=== PATIENT | male | born 1945 | race Caucasian/White ===

== ENCOUNTER 2024-05-20 12:56 | Outpatient (REF) | payer MEDICARE, SELFPAY ==
--- NOTE | ~2024-05-20 | XR_ITS ---
EXAMINATION: X-ray lumbar spine 4 views. CLINICAL INFORMATION: Radiculopathy, lumbar region. TECHNIQUE: 4 views of the lumbar spine including flexion and extension. COMPARISON: None FINDINGS: Transverse pedicle screw L4, L5 and S1 bilaterally. Status post intervertebral disc spacer L4-5 and L5-S1. Marginal osteophyte formation, syndesmophyte formation and endplate sclerosis and decreased intervertebral disc height L2-3 and to a lesser extent L3-4. No gross malalignment in the neutral or flexion and extension positioning. Vascular calcifications. XR/XR lumbar spine 4V min IMPRESSION: Moderate to severe spondylosis L2-3 and to a lesser extent L3-4 without acute fracture or listhesis or gross instability. Status post posterior fusion L4 S1 and intervertebral disc spacer placement L4-5 and L5-S1. Electronically signed by: Nathan Valadez MD 05/21/2024 03:50 PM EDT
== END 2024-05-20 12:57 | disposition home or self-care (01) ==
LOC: HO.HOSX 12:56
PROVIDERS: PCP Physician Assistant; Visit Provider Physician Assistant
DX: M54.16 Radiculopathy, lumbar region (principal)
CPT/HCPCS: 72110; 99202

== ENCOUNTER 2024-05-20 12:56 | Outpatient (AMB) | payer MEDICARE, SELFPAY ==
--- NOTE | 2024-05-20 12:59 | HO.SPINEOV ---
Vital Signs 05/20/24 13:03 Height 5 ft 8 in Weight 188 lb BMI 28.6 Intake Visit Reasons: left buttock pain down foot Intake Note: Mr. Quinones is here today c/o Left sided buttock pain that radiates down the leg to the foot. Radiology Clerk Required: No Allergies amoxicillin Allergy (Severe, Verified 05/20/24 13:04) Stomach Upset Physical Exam Vital Signs: BMI result Body Mass Index 28.6 Assessment & Plan Assessment & Plan (1) Lumbar radiculopathy: Code(s): M54.16 - Radiculopathy, lumbar region Category: Medical Plan This is a very nice 79-year-old gentleman who underwent anterior lumbar interbody fusion L4-5, L5-S1 with posterior instrumentation with Dr. Schreiber at [facility] in February of 2023. His initial preoperative symptom was back pain. He had gone through extensive preoperative conservative management and it was decided based on his MRI that he had degenerative disc disease at L4-5 and L5-S1, and would be a good candidate for surgery. The patient reports that he underwent the procedure. For whatever reason, the was told after surgery that the operation went well but that it did take longer than they thought. Right after the surgery the patient had delirium and an ileus and had an extended stay in the hospital. Once he was able to get up and start walking around maybe a week later or so, he noticed that he had severe left leg pain shooting from his low back down into his buttock, posterolateral thigh, anterior tibial region that top of his foot. He also developed a footdrop at that time. Patient saw Dr. Schreiber in follow-up, felt that it might be some kind of perioperative related nerve irritation and that it should get better over time. He underwent extensive physical therapy. There was some improvement in the weakness of the foot but no improvement in the leg pain. In fact over the following months the pain escalated and continued to get worse. Any standing walking or prolonged activity the patient requires a walker or a cane. He has been doing injections at [facility] and [facility]. He underwent the 1st 2 injections and he had no relief. He did undergo an injection this morning just before our office visit and noticed that there was some relief of the pain. Exactly what that injection was the patient's believes it may have been an epidural. The patient saw Dr. Schreiber recently, and has been offered the possibility of what sounds like a lumbar laminectomy and foraminotomy. The patient currently is taking oxycodone 1 to 2 times a day, Tylenol without any major improvements. He had an MRI done at [place] showing postsurgical changes, stenosis at L3-4. PMH: He is reasonably healthy for his age, history of prostate cancer, status post open prostate resection, hypertension, prediabetes with an A1c of 6.1, high cholesterol, NAFLD but no liver function abnormalities, 2 rotator cuff repairs, 2 knee surgeries. Denies any history of heart attack, stroke, kidney disease, coagulopathies or blood clots Social hx: He does not smoke, does drink a fusion and tonics at night and occasionally smokes marijuana Medications: Amlodipine, losartan, rosuvastatin, escitalopram, oxycodone and Tylenol Allergies: Amoxicillin Physical exam: Awake alert oriented no acute distress, patient he would get up out of a chair on his own independently stand walk down the hallway with a slightly antalgic gait. Motor examination reveals a 4-5 weakness of the left tibialis anterior and left extensor hallucis longus. Foot eversion, plantar flexion, quadriceps and hip flexion are all normal. He has some loss of sensation along the L5 dermatome to light touch. Absent Achilles reflexes bilaterally. Imaging review: Lumbar MRI done at [place] in 2024, compared to previous imaging done preoperatively shows postsurgical changes from L4-S1 with anterior instrumentation and interbody cages, posterior pedicle screws. There is moderate to severe stenosis at L3-4 slightly worse than compared to imaging done preoperatively. There is obstruction due to metallic artifact of the left L5 foramen I can not distinguish if it is patent or not. Impression: 79-year-old male underwent lumbar anterior interbody fusion L4-5, L5-S1 with posterior instrumentation at [facility] with Dr. Schreiber about a year or more ago for surgical indication of back pain, who awoke with a new severe left leg pain and foot weakness that he did not have before surgery. The pain has only escalated over time despite conservative management and injections. The foot weakness has gotten slightly better but he is still dealing with the footdrop. I reviewed his imaging, the MRI is limited somewhat in that it is showing me details of the interbody cages and the screws but exact placement and position is unable to be determined due to the limitations with the MRI. I do not have a plain film more CT scan to look at but it appears as though these were done postoperatively. The 1st differential here would be that there was some kind of nerve injury at the time of surgery and that is why the patient awoke with the new pain in the weakness. This can be for many reasons, but we would need to review the CT scan with Dr. Harkins to see if there is any signs of misplacement of the screws. The will obtain those images for us and I will get new standing flexion-extension x-rays today just to get a better look at the hardware. A 2nd possibility is that during the placement of the cages a piece of the disc came out and has lodged itself up against the nerve. This would present like an acute disc herniation. Which is somewhat similar to what he has. Less likely is that it is the stenosis at L3-4 because all of this occurred immediately at the time of surgery in the stenosis does not look significantly different preoperative to postoperative. Once I have a copy of the CT scans in the x-rays I will call the patient back, and I would like them to return for a visit to meet Dr. Harkins into go over if there any options to help him with the leg pain. I did admonished the patient and his that the weakness of the foot is likely permanent. Thank you for allowing us to care for your patient. The total time spent with this visit with this patient was 65 minutes reviewing history, physical exam, lumbar imaging review, and implementation of treatment plan or further diagnostic testing Milton Harkins MD,PhD [facility] Orders: Orders XR lumbar spine 4V min Today M54.16 - Radiculopathy, lumbar region Coding Level of Care Code New Pt Level 5 (49396) Diagnoses Lumbar radiculopathy M54.16
[2024-05-20 13:03] VITALS: BMI 28.6
== END 2024-05-20 14:34 | disposition home or self-care (01) ==
LOC: HO.HNS 12:57
PROVIDERS: PCP Physician Assistant; Visit Provider Physician Assistant
DX: M54.16 Radiculopathy, lumbar region (principal)
CPT/HCPCS: 99205

== ENCOUNTER → 2024-05-20 14:05 | Outpatient (BNV) | payer MEDICARE, SELFPAY | PROVIDERS: PCP Physician Assistant; Visit Provider Radiology Diagnostic Radiology | DX: M54.16 Radiculopathy, lumbar region (principal) | CPT/HCPCS: 72110 ==

== ENCOUNTER 2024-05-30 16:40 | Outpatient (REF) | payer MEDICARE, SELFPAY ==
--- NOTE | ~2024-05-30 | CT_ITS ---
CLINICAL HISTORY: M54.16 - Radiculopathy, lumbar region CT lumbar spine without contrast Comparison: DX/SR - XR LUMBAR SPINE 4V MIN - 05/20/24 14:05 EDT Findings: Trace retrolisthesis of L3 on L4. Prior posterior metallic fusion extending from L4 through S1 and interbody fusion at L4-L5 and L5-S1. No evidence of hardware failure. No acute fractures or dislocations. L1-L2: Normal L2-L3: Small disc osteophyte complex. Endplate irregularity. No significant central canal or neural foraminal narrowing. L3-L4: Small disc osteophyte complex. Mild thecal sac effacement. Mild bilateral neural foraminal narrowing. L4-L5: Postsurgical change. Widely patent central canal and neural foramina. L5-S1: Postsurgical change. Endplate proliferation. Facet osteoarthritis. Mild narrowing of the left lateral recess. Moderate stenosis of the right neural foramen. Mild stenosis of the left neural foramen. There are retroperitoneal surgical clips. There are gallstones within the gallbladder. IMPRESSION: 1. Status post surgical fusion extending from L4 through S1. Appropriate alignment. No evidence of hardware failure. 2. Endplate irregularity at L2-L3. This is most likely degenerative but discitis osteomyelitis is not excluded. 3. Degenerative changes with associated central canal and neural foraminal narrowing as described. 4. Cholelithiasis. This document has been electronically signed by: Helen Mckinney MD on 05/31/2024 15:01:11
--- OUTSIDE RECORDS SUMMARY | 2024-05-30 17:13 | XMS_ITS | Clinical Summary ---
Author Organization [facility], Address [address] [place] [address] Phone Care Team Providers Care Injection Molding Process Technician Name Role Phone Patel Madrigal Primary Care Provider [phone] Allergies Active Allergy Reactions Criticality Noted Date Comments Amoxicillin Vomiting 03/08/2023 NAUSEA Medications rosuvastatin (CRESTOR) 40 MG tablet Take 40 mg by mouth 1 (one) time each day Active escitalopram (LEXAPRO) 10 MG tablet Take 10 mg by mouth 1 (one) time each day Active amLODIPine (NORVASC) 10 MG tablet Take 10 mg by mouth 1 (one) time each day Active losartan (COZAAR) 50 MG tablet Take 100 mg by mouth 1 (one) time each day Active acetaminophen (TYLENOL) 500 MG tablet Take 1,000 mg by mouth every 4 (four) hours if needed for mild pain Active gabapentin (NEURONTIN) 100 MG capsule Take 100 mg by mouth in the morning and 100 mg in the evening and 100 mg before bedtime. As needed. Active furosemide (Lasix) 40 MG tablet Take 1 tablet (40 mg total) by mouth 1 (one) time each day 7 tablet 04/19/2023 Active Active Problems Problem Noted Date Diagnosed Date Depressive disorder 03/09/2023 Hyperlipidemia 03/09/2023 Hypertension 03/09/2023 Gastrointestinal hemorrhage 03/09/2023 Overview (03/09/2023): History of Lumbar radiculitis 03/08/2023 Facet joint pain 03/08/2023 Social History Tobacco Use Types Packs/Day Years Used Date Smoking Tobacco: Former Cigarettes Tobacco Cessation:Counseling Given: Not Answered Comments:Quit 45yrs ago Alcohol Use Standard Drinks/Week Comments Yes 0 (1 standard drink = 0.6 oz pur e alcohol) 1 drink a day Sex and Gender Information Value Date Recorded Sex Assigned at Not on file Legal Sex Male 2:39 PM EST Gender Identity Not on file Sexual Orientation Not on file Last Filed Vital Signs Vital Sign Reading Time Taken Comments Blood Pressure 115/71 04/18/2023 10:50 AM EST Pulse 95 04/18/2023 10:50 AM EST Temperature 36.9 ??C (98.4 ??F) 04/18/2023 10:[address] Respiratory Rate - - Oxygen Saturation 95% 04/18/2023 10:50 AM EST Inhaled Oxygen Concentration - - Weight 79.4 kg (175 lb) 04/18/2023 10:50 AM EST Height 172.7 cm (5' 8 ) 04/18/2023 10:50 AM EST Body Mass Index 26.61 04/18/2023 10:50 AM EST Plan of Treatment Health Maintenance Due Date Last Done Comments Pneumococcal Vaccine: 65+ Ye ars (1 of 2 - PCV) 04/29/1951 Influenza Vaccine (Season Ended) 2024 Hepatitis B Vaccine Aged Out No longe r eligible based on patient's age to complete this topic Insurance [facility] [place] [address] Care Teams Injection Molding Process Technician Relationship Specialty Start Date End Date Patel Madrigal PA [address] [place] [address] PCP - General Physician Solution Manager 03/09/23
== END 2024-05-30 16:41 | disposition home or self-care (01) ==
LOC: HO.CT 16:40
PROVIDERS: PCP Physician Assistant; Visit Provider Physician Assistant
DX: M54.16 Radiculopathy, lumbar region (principal)
CPT/HCPCS: 72131

== ENCOUNTER → 2024-05-30 16:42 | Outpatient (BNV) | payer MEDICARE, SELFPAY | PROVIDERS: PCP Physician Assistant; Visit Provider Radiology Diagnostic Radiology | DX: M51.369 Other intervertebral disc degeneration, lumbar region without mention of lumbar back pain or lower extremity pain (principal); M99.63 Osseous and subluxation stenosis of intervertebral foramina of lumbar region; K80.20 Calculus of gallbladder without cholecystitis without obstruction | CPT/HCPCS: 72131 ==

== ENCOUNTER 2024-06-19 10:44 | Outpatient (AMB) | payer MEDICARE, SELFPAY ==
--- NOTE | 2024-06-19 11:07 | HO.SPINEOV ---
Intake Visit Reasons: CT f/u and possible surgical discussion Intake Note: Mr. Mcmanus is here today to discuss the results of his CT Scan and possible surgery. Telephone Recorder Required: No Allergies amoxicillin Allergy (Severe, Verified 05/20/24 13:04) Stomach Upset Assessment & Plan Assessment & Plan (1) Lumbar radiculopathy: Code(s): M54.16 - Radiculopathy, lumbar region Category: Medical Plan Dear colleague, On 06/19/2024, I saw Thad Quinones. He underwent an anterior lumbar interbody fusion L4-S1 another institution. Surgery was complicated by an ileus. The patient had a very long recovery, including prolonged physical therapy. The original indication was for chronic back pain. Postoperatively, he gradually developed pain in his left buttock radiating down his left leg to the top of his foot. In addition, a mild drop foot developed. The symptoms continued to progress. The the pain increases with walking and standing. Sitting down the pain subsides and will only be located in the left buttock. He saw his original surgeon that said everything looked normal. He came to see us for 2nd opinion. We ordered a CT of the lumbar spine that shows a solid fusion of the L4-S1 segments. The cage at L5-S1 is off midline towards the symptomatic side. The CT report reviews no other abnormalities. I am worried that something compressing on the left L5 nerve root explaining the continuation of progressive pain and neurological deficits. I recommended an exploratory left L5 laminotomy and foraminotomy to decompress the L5 nerve root. To get the optimal exposure I would also remove the left-sided L4-S1 pedicle screws. The patient and his understand that if this procedure is not successful, a spinal cord stimulator as recommended. I spent 35 minutes in his consult performing a history, reviewing imaging, answering questions and explaining the rationale for surgical exploration being the ongoing progression of the neurological deficits Coding Level of Care Code Est Pt Level 4 (66691) Diagnoses Lumbar radiculopathy M54.16
--- OUTSIDE RECORDS SUMMARY | 2024-06-19 12:48 | XMS_ITS | Clinical Summary ---
Author Organization [facility], Address [address] [place] [address] Phone Care Team Providers Care Side Seam Tender Name Role Phone Patel Madrigal Primary Care Provider [phone] Allergies Active Allergy Reactions Criticality Noted Date [...] Due Date Last Done Comments Pneumococcal Vaccine: 50+ Ye ars (1 of 2 - PCV) 04/29/1964 Influenza Vaccine (Season Ended) 2024 Hepatitis B Vaccine Aged Out No longe r eligible based on patient's age to complete this topic Insurance [facility] Medicare Care Teams Side Seam Tender Relationship Specialty Start Date End Date Patel Madrigal PA [address] [place] [address] PCP - General Physician Parts Back Counter Man 03/09/23
== END 2024-06-19 12:28 | disposition home or self-care (01) ==
LOC: HO.HNS 10:44
PROVIDERS: PCP Physician Assistant; Visit Provider Neurological Surgery
DX: M54.16 Radiculopathy, lumbar region (principal)
CPT/HCPCS: 99214

== ENCOUNTER → 2024-06-19 10:44 | Outpatient (BNVA) | payer MEDICARE, SELFPAY | PROVIDERS: PCP Physician Assistant; Visit Provider Neurological Surgery | DX: M54.16 Radiculopathy, lumbar region (principal) | CPT/HCPCS: 99212 ==

== ENCOUNTER → 2024-07-08 13:40 | Outpatient (BNV) | payer MEDICARE, SELFPAY | PROVIDERS: PCP Physician Assistant; Visit Provider Internal Medicine Cardiovascular Disease | DX: I45.2 Bifascicular block (principal); I51.7 Cardiomegaly | CPT/HCPCS: 93010 ==

== ENCOUNTER → 2024-07-23 08:06 | Outpatient (REF) | payer MEDICARE, SELFPAY ==
--- OUTSIDE RECORDS SUMMARY | 2024-07-23 08:08 | XMS_ITS | Clinical Summary ---
Author Organization [facility], Address [address] [place] [address] Phone Care Team Providers Care Cardiology Tech Name Role Phone Patel Madrigal Primary Care Provider [phone] Allergies Active Allergy Reactions Criticality Noted Date [...] patient's age to complete this topic Insurance [facility] Medicare Care Teams Cardiology Tech Relationship Specialty Start Date End Date Patel Madrigal PA [address] [place] [address] PCP - General Physician Rug Designer 03/09/23
--- NOTE | 2024-07-23 08:09 | CA_ITS ---
Transthoracic Echocardiogram Patient (Last, First, Middle): Thad Quinones, Gender: Male Date of : 1945 Age: 79 Procedure Date: 07/23/2024 Procedure Type: Transthoracic Echocardiogram Location: OP Height: 172. cm Weight: 85.28 kg BSA: 1.98 m2 Heart Rate: 62 bpm BP: 160 / 80 mmHg Sliding Joint Maker: SAI Referring MD: Kosta KOTHARI Parking Lot Spotter: Juan Kinsey MD Symptoms: M54.16 - Radiculopathy, lumbar region Study Quality: Adequate ECG Rhythm: Sinus Conclusions: - 1. Normal LV ejection fraction of 60 65% with grade 1 diastolic dysfunction 2. Mild aortic regurgitation 3. Normal RV systolic pressure 4. Upper limits of normal ascending aortic size 5. No pericardial effusion Findings Left Ventricle Normal left ventricular size, thickness, and systolic function. The visually estimated ejection fraction is between 60-65%. Spectral Doppler is indicative of an impaired relaxation filling pattern. E/E prime ratio is <8, consistent with normal filling pressures. Evidence suggests grade I (mild) diastolic dysfunction. Right Ventricle Normal right ventricular cavity size and systolic function. Atria Both atria are normal in size. There is lipomatous hypertrophy of the interatrial septum. There is no evidence of interatrial shunt. Aortic Valve Normal aortic valve structure and function. There is mild calcification of the aortic valve. There is no aortic valve stenosis. There is mild aortic valve regurgitation. Mitral Valve Normal mitral valve structure and function. There is trace mitral valve regurgitation. There is no mitral valve stenosis. Pulmonic Valve The pulmonic valve is likely normal. Tricuspid Valve Normal tricuspid valve structure. There is trace tricuspid valve regurgitation. The right ventricular systolic pressure is normal. The right ventricular systolic pressure is 20 mmHg. Normal right atrial pressure. There is no evidence of pulmonary hypertension. Great Vessels All visible segments of the aorta are normal in size. The pulmonary artery was not well visualized. Venous The inferior vena cava is normal in size and collapses greater than 50% with inspiration. Pericardium/Pleural There is no evidence of pericardial effusion. Prior Study Comparison No prior study available for comparison. Measurements 2D Linear Measurements IVSd: 1.11 0.6-0.9/0.6-1.0 cm LVIDd: 4.06 3.9-5.3/4.2-5.9 cm LVIDd Index: 2.05 2.4-3.2/2.2-3.1 cm/m2 LVIDs: 2.31 2.0-3.6 cm LVPWd: 1.02 0.7-1.1 cm LA Diam: 3.60 2.7-3.8/3.0-4.0 cm LAIDs Index: 1.82 1.5-2.3 cm/m2 LV Mass: 177.06 67-162/88-224 g LV Mass Index: 89.43 43-95/49-115 g/m2 LVOT Diam: 2.00 3.0+(-)1.3 cm 2D Systolic Function EF 4C: 56.70 >55% EF 2C: 67.80 >55% EF BiP: 64.20 >55% Mitral Valve MV Pk E: 0.43 MV PK A: 0.71 MV Decel Time: 418.00 E/A: 0.60 E'Lateral: 7.94 E'Medial: 5.98 E/E' Med: 7.20 E/E' Lat: 5.50 PHT: 123.00 MVA PHT: 1.79 Decel Hansford: 1.03 Aortic Valve AoV Pk Eduardo: 1.49 AoV Mn Eduardo: 0.99 AoV VTI: 0.30 AoV Pk Grad: 9.00 Aov Mn Grad: 4.00 MI Cont.VTI: 2.49 AI Pk Eduardo: 4.90 AI Hans[place]: 2.82 LVOT LVOT Pk Eduardo: 1.20 LVOT Mn Eduardo: 0.83 LVOT VTI: 0.24 LVOT Pk Grad: 6.00 LVOT Mn Grad: 3.00 LVOT Diam: 2.00 LVOT Area: 3.14 Diastolic Function MV Pk E: 0.43 MV Pk A: 0.71 E/A: 0.60 E'Medial: 5.98 E/E' Med: 7.20 E' Laterial: 7.94 E/E' Lat: 5.50 Right Ventricle TAPSE (mm): 18.90 TVS' Eduardo: 9.57 Tricuspid Valve TR Pk Eduardo: 2.05 TR Pk Grad: 17.00 RA Press: 3.00 RVSP: 20.00 Great Vessels Aorta Sinus of Valsalva: 3.60 2.0-3.5 cm Ao Asc: 3.60 2.1-3.4 cm Ao Arch: 2.70 Pulmonary Valve PV Pk Eduardo: 1.02 Peak PV Grad: 4.00 Updated in Other Vendor System with Status of Final Juan Kinsey MD electronically signed on 07/24/2024 12:23:50 PM with status of Final
== END ==
LOC: HO.CARD 08:06
PROVIDERS: PCP Physician Assistant; Visit Provider Physician Assistant
DX: M54.16 Radiculopathy, lumbar region (principal)
CPT/HCPCS: 93306

== ENCOUNTER → 2024-07-23 08:09 | Outpatient (BNV) | payer MEDICARE, SELFPAY | PROVIDERS: PCP Physician Assistant; Visit Provider Internal Medicine Cardiovascular Disease | DX: I35.1 Nonrheumatic aortic (valve) insufficiency (principal); I51.89 Other ill-defined heart diseases | CPT/HCPCS: 93306 ==

== ENCOUNTER 2024-08-08 05:51 | Day surgery (SDC) | payer MEDICARE, SELFPAY ==
--- NOTE | 2024-07-08 | ECG_ITS ---
Test Reason : PREOP Blood Pressure : */* mmHG Vent. Rate : 74 BPM Atrial Rate : 74 BPM P-R Int : 160 ms QRS Dur : 144 ms QT Int : 436 ms P-R-T Axes : 5 -46 77 degrees QTcB Int : 483 ms Normal sinus rhythm Right bundle branch block Left anterior fascicular block Bifascicular block Left ventricular hypertrophy with repolarization abnormality ( R in aVL , Romhilt-Leonardo ) Abnormal ECG No previous ECGs available Referred By: Norma Hansen Electronically Signed By: JYOTI JAMES MD
[2024-07-08 13:06] VITALS: BP 136/73; PULSE 82; RESP 16; O2SAT 96; BMI 28.9
[2024-08-08] VITALS (7 sets, daily range): BP systolic 100–142; BP diastolic 46–79; PULSE 78–89; RESP 12–20; TEMP 36.1–36.7; O2SAT 96–99; BMI 28.9
--- NOTE | ~2024-08-08 | FL_ITS ---
EXAMINATION: FL GUIDANCE ONLY HISTORY: left l5 laminotomy COMPARISON: Correlation is made to plain films of the lumbar spine dated 05/20/2024. TECHNIQUE: Fluoroscopy time: 2.8 seconds. Cumulative Dose: 2.4732 mGy. DAP: 0.8548 mGym2 Images: 2. FINDINGS: Fluoroscopic spot films of the lumbar spine in the lateral projection demonstrate a probe directed toward the L5 vertebral body from a posterior approach. The patient is again noted to be status post posterior fusion of L4-S1 with pedicle screws, spinal stabilization rods, and intervertebral spacers. FL/FL guidance in OR IMPRESSION: Fluoroscopy during procedure. Please see procedure report for additional information. Electronically signed by: Raj Anderson MD 08/08/2024 12:31 PM EDT
[2024-08-08] MEDS: Lactated Ringers 1,000 ML 100 ML IVCONT (06:28)
[2024-08-08] MEDS: Gabapentin 300 MG CAPSULE PO (06:36)
[2024-08-08] MEDS: methocarbamoL 750 MG TABLET PO (06:36)
[2024-08-08] MEDS: vancomycin HCL 1,500 MG in 0.9 % Sodium Chloride 500 ML 333.33 MG IV (06:41)
--- NOTE | 2024-08-08 07:00 | PC.NURSE ---
Angela states he is borderline diabetic. Denies taking any medicaitons or checking blood glucose at home.
--- NOTE | 2024-08-08 07:01 | MHC.SHP ---
Pre-Procedural Eval Section A - 24 Hr Update-Section A only Date of Service: 08/08/24 The patient is an INPATIENT: No Changes since office visit: No Cold of Flu in the past 2 weeks, No New Medical Problems, No Changes in Medication and No Patient answered all questions The patient has been examined within 24 hours of the surgical procedure. The History & Physical has been completed within 30 days and I have reviewed it.: No Section B - Complete if H&P > 30 days Chief Complaint: Radiculopathy, lumbar region Allergies: Allergies Allergy/AdvReac Type Severity Reaction Status Date / Time amoxicillin Allergy Severe Stomach Verified 08/08/24 06:09 Upset atorvastatin [From Lipitor] Allergy myalgias, Verified 08/08/24 06:09 prior to 2013 Review of Systems Sugical H&P ROS: Negative: Constitution, Cardiovascular, Respiratory, Neurological, Psychiatric, Hem-Onc, Allergic/Immunologic, Gastrointestinal, Genitourinary, Musculoskeletal, Integumentary, Endocrine and Eyes/Ears/Nose/Throat Exam Surgical H&P Exam: Normal: HEENT, Normal: Heart, Normal: Lungs, Normal: Extremities, Normal: Abdomen, Normal: Skin and Normal: Neurological (Awake alert oriented x3) Plan Diagnosis/Plan: Unchanged Left L5 laminotomy and foraminotomy Time Spent With Patient Time: Total time managing care of this patient today __ 5 __ minutes.
--- NOTE | 2024-08-08 07:02 | PM.DS ---
DS: Providers Provider Date of Service: 08/08/24 Date of discharge: 08/08/24 Primary care physician: Patel Madrigal PA-C Admitting clinician: Jaun Harkins DS: Diagnosis Discharge Diagnosis (1) Lumbar radiculopathy: Status: Acute DS: Summary Time Attestation Discharge Coordination Time (in mins): 5 Quality: Safe Use of Opioids Does Pt have an Active Cancer Diagnosis on the Problem List?: No Quality: Stroke Does the patient have a stroke diagnosis?: No Physical Exam Vital Signs: Vital Signs: Last Vital Signs Temp 98.1 F 08/08/24 06:20 Pulse 78 08/08/24 06:20 Resp 16 08/08/24 06:20 BP 142/79 H 08/08/24 06:20 Pulse Ox 96 08/08/24 06:20 O2 Del Method Room Air 08/08/24 06:20 BMI result Body Mass Index 28.9 Discharge Plan Discharge Patient Disposition: Home, Self-Care Referrals: Patel Madrigal PA-C [Primary Care Provider] - 1 Week Discharge Medications: New oxycodone 5 mg tablet 5 mg PO Q6-8H PRN (Reason: pain) Qty: 20 0RF Rx Instructions: Partial Fill upon patient request. Continued amlodipine 5 mg tablet 5 mg PO BEDTIME acetaminophen 500 mg Tablet 500 mg PO Q6H PRN (Reason: Pain) sildenafil [Viagra] 100 mg Tablet 100 mg PO DAILY PRN (Reason: Sexual Activity) Rx Instructions: administer 30 minutes to 4 hours before activity oxycodone-acetaminophen 5-325 mg tablet 1 tab PO BID PRN (Reason: Pain) hydroxyzine HCl 25 mg tablet 25 mg PO Q8H PRN (Reason: Itching) losartan 100 mg tablet 100 mg PO BEDTIME escitalopram oxalate 10 mg tablet 10 mg PO BEDTIME rosuvastatin 40 mg tablet 40 mg PO BEDTIME cholecalciferol (vitamin D3) [Vitamin D3] 50 mcg (2,000 unit) Capsule 50 mcg PO BEDTIME Discharge Orders: Discharge Order (Routine); Ordered 08/08/24 Ordered By: Milton Stevens Diet: Advance to usual diet Activity on Discharge: As tolerated Activity Restrictions/Additional Instructions: After your spinal surgery we ask you to observe the following restrictions/guidelines: Activity: It is normal to feel some discomfort as you increase your activity, but that will improve with time. We ask you avoid heavy lifting or acitivities that cause pain. As a general rule, 8lbs is a safe limit for lifting right after surgery. Walk as much as you feel comfortable but not to exhaustion. You will feel extra tired the first few days after surgery. Stay well hydrated. It is OK to walk up and down stairs You may return to driving when you are off narcotics (such as vicodin, oxycodone, dilaudid, etc), and you are back to normal functional capacity. If you have any concerns please check with office before driving. Return to work is specific to each patient and each surgery, so please speak with your doctor/PA at first follow up. Please bring paperwork such as FMLA at that time if you need it filled out. Medications: For optimum pain control, it is best to start with a combination of 500 mg of Tylenol every 4 hours with 600 mg of Motrin every 8 hours, and use narcotics as needed in between for breakthrough pain. We will give you a short supply of narcotics after surgery (usually one weeks worth). If you need more please call the office but do not use more than prescribed. You will need to give our office 48 hours notice if you need narcotics refilled and we do not fill narcotics on weekends or evenings. If you are on a narcotic, it is a good idea to take a stool softener such as colace or senna to avoid constipation If you take blood thinner such as aspirin, Plavix, Coumadin, Effient, Eliquis etc for conditions such as Afib, DVT, Pulmonary embolus, coronary disease, stents etc please speak with your surgeon about specific details as to when you can resume these medications. You can resume NSAIDs on post op day 1 (eg: Motrin, Naproxen, etc). Follow up: Please call the office, , after surgery to arrange a 3 week follow up for wound check. Wound Care: You may remove your dressing on the first day after surgery. ?You may ?leave open to air. Please do not remove the steri strips underneath. they will fall off on their own in one week. IT IS NORMAL FOR THE WOUND TO OOZE OR BE BLOODY FOR A FEW DAYS AFTER SURGERY. ?IF THIS HAPPENS JUST PLACE NEW DRESSING OVER IT TO AVOID STAINING CLOTHES. You may shower on post op day # 1 We ask that you do not let the water soak the wound. If it does get wet, just towel dry lightly. Please do not scrub your incision or place any type of chemical/ointment on the wound. No tub baths, pools or jacuzzis for one month. If you have any leaking or redness from your wound, or fevers, please call office Print Language: Paraguayan
--- NOTE | 2024-08-08 07:20 | HO.ANESPROP2 ---
Documented by User: Norma Hansen NP 07/26/24 11:40 HPI - Anesthesia Eval Consult details Narrative: 79yo M for L5 Laminotomy/Foraminotomy, 08/08/24 No recent illness No CP/SOB with limited activity d/t pain DM:No rx, A1C = 6.5% Hx postop ileus after ALIF 2023, aware of symptomology and when to seek care ETOH: 1-2 cocktails daily, encouraged slow decrease preop Left foot drop since 02/2024 r/t back symptoms +Stop BANG: Discussed post-op risk of obstruction/desaturation, encouraged future f/u with PCP. Pt and verbalized understanding. New Bifasicular block on EKG. Requires echo preop - surgical team notified. (ETOH and possible untreated NGUYEN). Case reviewed with Dr Whitlock. 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 Vitamin D deficiency Type 2 diabetes mellitus Hx of duodenal ulcer Arthritis Urinary incontinence Anxiety HLD (hyperlipidemia) HTN (hypertension) History of prostate cancer Surgical History Surgical History History of radiofrequency ablation (RFA) of nerve of lumbar spine (~2021) Hx of prostate biopsy (08/2014) Hx of repair of left rotator cuff (~2014) Hx of repair of right rotator cuff (~2008) Hx of meniscectomy of right knee (~1966) Hx of arthroscopy of right knee (~2005) History of lumbar fusion (~2023) History of esophagogastroduodenoscopy (EGD) Hx of colonoscopy Hx of radical prostatectomy (09/2014) Social History Social History (Updated 07/05/24 @ 15:01 by Ami Miller RN) Household Members: Spouse Housing: House Are you a primary resident care associate to a significant other at home: No Do you presently have visiting nurse or other home services: No Patient Tobacco Use Status: Former Tobacco user Tobacco use type: Cigarette Smoked in Last 30 Days: No Use of substances other than those prescribed or required for medical reasons: Yes Substance Use Type: Marijuana Substance Use Type Other:: last use a couple of months ago Substance Use Frequency: Occasionally Substance Use Frequency Other:: vaped and gummies Have you been hit, kicked, punched, or otherwise hurt by someone within the past year? If so, by whom?: No Are you DNR?: No Advance Directives: No Advance Directives Information Provided: Yes Advance Directives on File: No Healthcare Proxy: Yes (will bring dos) Poor oral hygiene: No Meds Allergies Allergy/AdvReac Type Severity Reaction Status Date / Time amoxicillin Allergy Severe Stomach Verified 08/08/24 06:09 Upset atorvastatin [From Lipitor] Allergy myalgias, Verified 08/08/24 06:09 prior to 2013 Home Medications ?Medication ?Instructions ?Recorded ?Confirmed ?Last Taken ?Type acetaminophen 500 mg tablet 500 mg PO Q6H PRN Pain 07/05/24 08/08/24 Unknown History amlodipine 5 mg tablet 5 mg PO BEDTIME 07/05/24 08/08/24 Unknown History cholecalciferol (vitamin D3) 50 50 mcg PO BEDTIME 07/05/24 08/08/24 Unknown History mcg (2,000 unit) capsule (Vitamin D3) escitalopram oxalate 10 mg tablet 10 mg PO BEDTIME 07/05/24 08/08/24 Unknown History hydroxyzine HCl 25 mg tablet 25 mg PO Q8H PRN Itching 07/05/24 08/08/24 Unknown History losartan 100 mg tablet 100 mg PO BEDTIME 07/05/24 08/08/24 Unknown History oxycodone-acetaminophen 5 mg-325 1 tab PO BID PRN Pain 07/05/24 08/08/24 Unknown History mg tablet rosuvastatin 40 mg tablet 40 mg PO BEDTIME 07/05/24 08/08/24 Unknown History sildenafil 100 mg tablet (Viagra) 100 mg PO DAILY PRN Sexual Activity 07/05/24 08/08/24 Unknown History Exam Height,Weight and Vital Signs: Height 5 ft 8 in Weight 86.183 kg Last Vital Signs Pulse 82 07/08/24 13:06 Resp 16 07/08/24 13:06 BP 136/73 07/08/24 13:06 Pulse Ox 96 07/08/24 13:06 O2 Del Method Room Air 07/08/24 13:06 Pertinent Lab Results Pertinent Lab Results: CBC and BMP 04/2024 from outside facility [place] Narrative Narrative: EKG 06/2024 Vent. Rate : 74 BPM Atrial Rate : 74 BPM P-R Int : 160 ms QRS Dur : 144 ms QT Int : 436 ms P-R-T Axes : 5 -46 77 degrees QTcB Int : 483 ms Normal sinus rhythm Right bundle branch block Left anterior fascicular block Bifascicular block Left ventricular hypertrophy with repolarization abnormality ( R in aVL , Romhilt-Leonardo ) Abnormal ECG No previous ECGs available ECHO 06/2024 Conclusions: - 1. Normal LV ejection fraction of 60 65% with grade 1 diastolic dysfunction 2. Mild aortic regurgitation 3. Normal RV systolic pressure 4. Upper limits of normal ascending aortic size 5. 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 Vitamin D deficiency Type 2 diabetes mellitus Hx of duodenal ulcer Arthritis Urinary incontinence Anxiety HLD (hyperlipidemia) HTN (hypertension) History of prostate cancer Family History Family history of problems with anesthesia: No Surgical History Surgical History History of radiofrequency ablation (RFA) of nerve of lumbar spine (~2021) Hx of prostate biopsy (08/2014) Hx of repair of left rotator cuff (~2014) Hx of repair of right rotator cuff (~2008) Hx of meniscectomy of right knee (~1966) Hx of arthroscopy of right knee (~2005) History of lumbar fusion (~2023) History of esophagogastroduodenoscopy (EGD) Hx of colonoscopy Hx of radical prostatectomy (09/2014) History of Problems with Anesthesia: No Social History Social History (Updated 07/05/24 @ 15:01 by Ami Miller RN) Household Members: Spouse Housing: House Are you a primary resident care associate to a significant other at home: No Do you presently have visiting nurse or other home services: No Patient Tobacco Use Status: Former Tobacco user Tobacco use type: Cigarette Smoked in Last 30 Days: No Use of substances other than those prescribed or required for medical reasons: Yes Substance Use Type: Marijuana Substance Use Type Other:: last use a couple of months ago Substance Use Frequency: Occasionally Substance Use Frequency Other:: vaped and gummies Have you been hit, kicked, punched, or otherwise hurt by someone within the past year? If so, by whom?: No Are you DNR?: No Advance Directives: No Advance Directives Information Provided: Yes Advance Directives on File: No Healthcare Proxy: Yes (will bring dos) Poor oral hygiene: No Meds Allergies Allergy/AdvReac Type Severity Reaction Status Date / Time amoxicillin Allergy Severe Stomach Verified 08/08/24 06:09 Upset atorvastatin [From Lipitor] Allergy myalgias, Verified 08/08/24 06:09 prior to 2013 Home Medications ?Medication ?Instructions ?Recorded ?Confirmed ?Last Taken ?Type acetaminophen 500 mg tablet 500 mg PO Q6H PRN Pain 07/05/24 08/08/24 Unknown History amlodipine 5 mg tablet 5 mg PO BEDTIME 07/05/24 08/08/24 Unknown History cholecalciferol (vitamin D3) 50 50 mcg PO BEDTIME 07/05/24 08/08/24 Unknown History mcg (2,000 unit) capsule (Vitamin D3) escitalopram oxalate 10 mg tablet 10 mg PO BEDTIME 07/05/24 08/08/24 Unknown History hydroxyzine HCl 25 mg tablet 25 mg PO Q8H PRN Itching 07/05/24 08/08/24 Unknown History losartan 100 mg tablet 100 mg PO BEDTIME 07/05/24 08/08/24 Unknown History oxycodone-acetaminophen 5 mg-325 1 tab PO BID PRN Pain 07/05/24 08/08/24 Unknown History mg tablet rosuvastatin 40 mg tablet 40 mg PO BEDTIME 07/05/24 08/08/24 Unknown History sildenafil 100 mg tablet (Viagra) 100 mg PO DAILY PRN Sexual Activity 07/05/24 08/08/24 Unknown History Exam Exam Date and Time: 08/08/24 0715 Height,Weight and Vital Signs: Height 5 ft 8 in Weight 86.183 kg Last Vital Signs Pulse 82 07/08/24 13:06 Resp 16 07/08/24 13:06 BP 136/73 07/08/24 13:06 Pulse Ox 96 07/08/24 13:06 O2 Del Method Room Air 07/08/24 13:06 Vital Signs Pulse Rate 82 07/08/24 13:06 Respiratory Rate 16 07/08/24 13:06 Blood Pressure 136/73 07/08/24 13:06 Pulse Oximetry 96 07/08/24 13:06 Oxygen Delivery Method Room Air 07/08/24 13:06 Temperature 98.1 F 08/08/24 06:20 Pulse Rate 78 08/08/24 06:20 Respiratory Rate 16 08/08/24 06:20 Blood Pressure 142/79 H 08/08/24 06:20 Pulse Oximetry 96 08/08/24 06:20 Oxygen Delivery Method Room Air 08/08/24 06:20 Airway Mallampati Class: II TM Dist: <=3cm Neck ROM: Full Loose/Missing/Broken Teeth: No (patient denies any loose or broken teeth) Heart: S1S2 Assessment and Plan Assessment Anesthesia Assessment: Anesthesia Plan Discussed and Chart Reviewed Final Anesthetic Review Family History of Problems with Anesthesia: No History of Problems with Anesthesia: No NPO: Yes ASA Class: III Final Preanesthetic Review: No Changes in Pt Med Stat, Meds/Allgs Chart Reviewed, Consent Obtained/Reviewed and Anes Risks/Benef Reviewed Patient Risk: Intermediate Procedure Risk: Intermediate Anesthetic Plan Anesthetic Plan: GA and Agree w/ Assess. and Plan Disposition: Standard PACU
[2024-08-08] MEDS: Acetaminophen 1,000 MG/100 ML PIGGYBACK 400 MG IV (08:00)
--- NOTE | 2024-08-08 08:22 | W.PM.OPN ---
Operative Note Operative Note Date of Service: 08/08/24 Narrative: Preoperative Diagnosis: Spinal stenosis/lateral recess stenosis/neural foraminal stenosis Operation: Left L5 Laminotomy, Partial facetectomy and foraminotomy with use of microscope Consent Informed Consent was obtained for this operation. I have explained the nature, purpose and benefits of the operation. I have discussed the risks and benefit of the operation including possible complications or adverse events with patient/family. Alternative(s) were discussed with the patient with their relative benefits and risks as well as the consequences of not accepting the operation were included in obtaining consent. Surgeon: LEONOR SAPP MD, PHD Procedure Assisted By: pawel Ma Description of Procedure This patient underwent an anterior lumbar interbody fusion L4-S1 in another institution. Postoperatively was complaining of a new left L5 radiculopathy. Imaging reviews that the L5-S1 cage is eccentric towards the left side. However there is no clear compression of the L5 nerve root. He continues to deteriorate clinically and therefore I offered him an exploration of the L5 nerve root with a decompression of the nervous structures. The procedure complications were explained. The patient was consented. The patient was brought to the operating room and endotracheally intubated. The patient was turned in prone position on the Bert frame. Prep and drape was done followed by timeout. Physician family and divorce legal assistant provided access. A mid lumbar incision was made followed by release of the paravertebral muscle on the left side to expose the L5 lamina and facet joint. An intraoperative x-ray was obtained to confirm the correct level. The microscope was brought in. I took over the procedure. The high-speed drill was used to do a L5 laminotomy. #2 Kerrison was used to further remove the lamina towards the L5 foramen. With a nerve hook the medial wall of the L5 pedicle was palpated as well as the beginning of the L5 foramen. The facet joint was partially drilled down after which with a #2 Kerrison a foraminotomy was done. Finally a foraminotomy Kerrison was used to complete the foraminotomy. A long nerve hook could be easily passed lateral and dorsally from the nerve root, a sign of relief of the neuroforaminal stenosis and decompression of the nerve root . The microscope was removed. Hemostasis was done. Incision was closed in 2 layers. Steri-Strips were used to approximate incision. An OpSite with Tegaderm was used to cover the incision. All sponge needle counts were correct. Patient was extubated and transported in stable is to recovery room. Anesthesia: General Estimated Blood Loss (ml): Minimal Duration of Surgery: Under 60 Minutes Postoperative Plan: Discharge to home
== END 2024-08-08 09:51 | disposition home or self-care (01) ==
PROVIDERS: PCP Physician Assistant; Visit Provider Neurological Surgery
PROC: (CPT 63047; principal; 2024-08-08 07:30)
DX: M48.061 Spinal stenosis, lumbar region without neurogenic claudication (principal); M54.16 Radiculopathy, lumbar region; G89.29 Other chronic pain; M54.50 Low back pain, unspecified; M21.372 Foot drop, left foot; R26.2 Difficulty in walking, not elsewhere classified; Z98.1 Arthrodesis status; Z88.1 Allergy status to other antibiotic agents; Z88.8 Allergy status to other drugs, medicaments and biological substances
CPT/HCPCS: 63047; 93005; J0131; J1100; J1885; J2003; J2371; J2405; J2704; J3010; J3371

== ENCOUNTER → 2024-08-08 05:51 | Outpatient (BNV) | payer MEDICARE, SELFPAY | PROVIDERS: PCP Physician Assistant; Visit Provider Neurological Surgery | DX: M48.062 Spinal stenosis, lumbar region with neurogenic claudication (principal) | CPT/HCPCS: 63047; 99499 ==

== ENCOUNTER 2024-08-23 14:24 | Outpatient (AMB) | payer MEDICARE, SELFPAY ==
--- NOTE | 2024-08-23 14:33 | A.SPINEOV_ITS ---
Intake Visit Reasons: 1st post op Intake Note: Mr. Quinones is here today for his 1st post op. Marketing Administrator Required: No Allergies amoxicillin Allergy (Severe, Verified 08/23/24 14:33) Stomach Upset atorvastatin (From Lipitor) Allergy (Verified 08/23/24 14:33) myalgias, prior to 2013 Assessment & Plan Assessment & Plan (1) Lumbar radiculopathy: Code(s): M54.16 - Radiculopathy, lumbar region Category: Medical Plan Mr Quinones is few here for his 1st postoperative visit for his left L5 foraminotomy/decompression and exploration of the L5 nerve for persistent left L5 radiculopathy after fusion by Dr. Schreiber. Initially he had amazing pain relief, but unfortunately the symptoms seem to have come back. There has been some degree of relief from the pain around the thigh. He is still having tremendous difficulty walking. He uses his cane periodically has he still has weakness in his left foot that did not improve. His wound healed up beautifully. At this point he has no restrictions. We discussed the fact that it could take many months for the nerve to regenerate heal, so we should give this more time and see where it goes. I would like to see him back in 2 months. Milton Harkins MD, PhD [facility] Coding Level of Care Code Global (30203) Diagnoses Lumbar radiculopathy M54.16
--- OUTSIDE RECORDS SUMMARY | 2024-08-23 14:48 | XMS_ITS | Clinical Summary ---
Author Organization [facility], Address [address] [place] [address] Phone Care Team Providers Care Chain Puller Name Role Phone Patel Madrigal Primary Care Provider [phone] Allergies Active Allergy Reactions Criticality Noted Date [...] 95 04/18/2023 10:50 AM EST Temperature 36.9 C (98.4 F) 04/18/2023 10:50 AM EST Respiratory Rate - - Oxygen Saturation 95% [...] patient's age to complete this topic Insurance [facility] Medicare Care Teams Chain Puller Relationship Specialty Start Date End Date Patel Madrigal PA [address] [place] [address] PCP - General Physician Inlayer Silver 03/09/23
== END 2024-08-23 14:55 | disposition home or self-care (01) ==
LOC: HO.HNS 14:24
PROVIDERS: PCP Physician Assistant; Visit Provider Physician Assistant
DX: M54.16 Radiculopathy, lumbar region (principal)
CPT/HCPCS: 99024

== ENCOUNTER → 2024-08-23 14:24 | Outpatient (BNVA) | payer MEDICARE, SELFPAY | PROVIDERS: PCP Physician Assistant; Visit Provider Physician Assistant | DX: Z48.89 Encounter for other specified surgical aftercare (principal); M54.16 Radiculopathy, lumbar region; Z98.890 Other specified postprocedural states | CPT/HCPCS: 99212 ==

== ENCOUNTER 2024-09-25 13:47 | Outpatient (AMB) | payer MEDICARE, SELFPAY ==
--- NOTE | 2024-09-25 14:01 | HO.SPINEOV ---
Intake Visit Reasons: Subsequent Evaluation Intake Note: Mr. Quinones is here today for a Subsequent Evaluation. Allergies amoxicillin Allergy (Severe, Verified 09/25/24 14:02) Stomach Upset atorvastatin (From Lipitor) Allergy (Verified 09/25/24 14:02) myalgias, prior to 2013 Assessment & Plan Assessment & Plan (1) Lumbar radiculopathy: Code(s): M54.16 - Radiculopathy, lumbar region Category: Medical Plan: Dear colleague, 09/25/2024, I saw for postoperative visit Thad Quinones. As you know, he underwent a lumbar fusion in another institution. He presented with nerve pain in L5 distribution, most likely due to nerve damage. We tried a foraminotomy but unfortunately the pain and weakness did not improve. 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 I advised him to start gabapentin up to 900 mg a day for 6 weeks. I will re-evaluate him after 6 weeks and if there is no improvement with gabapentin then I am going to refer him for a spinal cord stimulator. Jaun Harkins MD, PhD Spine Fellowship Trained Neurosurgeon Director, [facility] Medications: New gabapentin 300 mg for 3 days at night, then increase to 600 mg for 3 days at night and finally do 600 mg at night and 300 mg in a.m. 300 mg PO TID 90 caps 1RF M54.16 - Radiculopathy, lumbar region Coding Level of Care Code Global (82875) Diagnoses Lumbar radiculopathy M54.16
--- OUTSIDE RECORDS SUMMARY | 2024-09-25 14:27 | XMS_ITS | Clinical Summary ---
Author Organization [facility], Address [address] [place] [address] Phone Care Team Providers Care Lime Kiln Tender Name Role Phone Patel Madrigal Primary Care Provider Allergies Active Allergy Reactions Criticality Noted Date [...] of 2 - PCV) 04/29/1964 Influenza Vaccine (#1) 2024 Hepatitis B Vaccine Aged Out No longe r eligible based on patient's age to complete this topic Insurance [facility] Medicare Care Teams Lime Kiln Tender Relationship Specialty Start Date End Date Patel Madrigal PA [address] [place] [address] PCP - General Physician Burr Bench Hand 03/09/23
--- OUTSIDE RECORDS SUMMARY | 2024-09-25 14:27 | XMS_ITS | Clinical Summary ---
Author Organization [facility] Address [address] [facility] [address] [place] [address] Phone Care Team Providers Care Deputy Of Counter Intelligence Name Role Phone Raymundo Momin DO Primary Care Provider [phone] Rafael Banks MD, DPHIL Unavailable [phone] Allergies No known active allergies Active Problems Problem Noted Date Diagnosed Date Malignant neoplasm of prostate 09/19/2014 Overview (02/03/2015): Malignant tumor of prostate Immunizations Immunization Administration Dates Next Due Pneumococcal, Unspecified Formulation (Deferred: Patient Decision - 00) Social History Tobacco Use Types Packs/Day Years Used Date Smoking Tobacco: Former Education Answer Date Recorded Are you interested in more education? Not on jose e 06/24/2022 Are you concerned about learning? Not on file 06/24/2022 No 06/24/2022 No 06/24/2022 Digital Access Answer Date Recorded No 07/25/2022 No 07/25/2022 No 07/25/2022 Reliable internet access at home? Not on file 07/25/2022 Device with a working camera? Not on file Sex and Gender Information Value Date Recorded Sex Assigned at Not on file Legal Sex Male 1:10 PM EDT Gender Identity Not on file Sexual Orientation Not on file Last Filed Vital Signs Vital Sign Reading Time Taken Comments Blood Pressure 155/82 09/19/2014 11:41 AM EDT Pulse 90 09/19/2014 11:41 AM EDT Temperature 36.7 C (98 F) 09/19/2014 11:41 AM EDT Respiratory Rate 18 09/19/2014 11:41 AM EDT Oxygen Saturation - - Inhaled Oxygen Concentration - - Weight 74.4 kg (164 lb) 09/19/2014 11:41 AM EDT Height 172.7 cm (5' 8 ) 09/19/2014 11:41 AM EDT Body Mass Index 24.94 09/19/2014 11:41 AM EDT Plan of Treatment Health Maintenance Due Date Last Done Comments Adult Td,Tdap Booster 1945 LIPID PANEL 1947 DEPRESSION SCREENING 1959 SMOKING Hx and SMOKELESS TOB ACCO SCREENING 04/29/1960 HEPATITIS C SCREENING 04/29/1965 PNEUMOCOCCAL VACCINES (50+ y ears) (1 of 2 - PCV) 04/29/1966 ZOSTER VACCINES (2 of 2) 01/20/2021 11/25/2020 RSV VACCINE (1 - 1-dose 75+ series) 04/29/2022 COVID-19 VACCINE (2 - 2023-2 5 season) 2023 12/15/2020 HEPATITIS A VACCINES Aged Out No long er eligible based on patient's age to complete this topic HIB VACCINES Aged Out No longer eligi ble based on patient's age to complete this topic MENINGOCOCCAL VACCINES (ACWY) Aged Out No longer eligible based on patient's age to complete this topic MENINGOCOCCAL VACCINES (B) Aged Out N o longer eligible based on patient's age to complete this topic Medical Devices Not on file Insurance [employer] [place] [address] [facility] [place] [address] [facility] [place] [address] [facility] [place] [address] [place] [address] [facility] [place] [address] [place] [address] [facility] [place] [address] [facility] [address] [facility] POS Care Teams Deputy Of Counter Intelligence Relationship Specialty Start Date End Date Raymundo Momin PCP - General Internal Medicine 09/10/14 Rafael Banks MD, DPHIL [address] [place] [phone] [email or web address] Primary Oncologist Radiation Oncology 05/29/15 Additional Source Comments The information contained in this document represents components of the legal health record. It is not the complete legal health record.[facility]
== END 2024-09-25 14:30 | disposition home or self-care (01) ==
PROVIDERS: PCP Physician Assistant; Visit Provider Neurological Surgery
DX: M54.16 Radiculopathy, lumbar region (principal)
CPT/HCPCS: 99024

== ENCOUNTER → 2024-09-25 13:47 | Outpatient (BNVA) | payer MEDICARE, SELFPAY | PROVIDERS: PCP Physician Assistant; Visit Provider Neurological Surgery | DX: M54.16 Radiculopathy, lumbar region (principal); Z98.1 Arthrodesis status; Z79.899 Other long term (current) drug therapy | CPT/HCPCS: 99212 ==

== ENCOUNTER 2024-11-11 10:25 | Outpatient (AMB) | payer MEDICARE, SELFPAY ==
--- NOTE | 2024-11-11 10:29 | HO.SPINEOV ---
Intake Visit Reasons: follow up- 3rd post op Intake Note: Mr. Quinones is here today for a F/u. Professor Of Geography Required: No Allergies amoxicillin Allergy (Severe, Verified 09/25/24 14:02) Stomach Upset atorvastatin (From Lipitor) Allergy (Verified 09/25/24 14:02) myalgias, prior to 2013 Assessment & Plan Assessment & Plan (1) Lumbar radiculopathy: Code(s): M54.16 - Radiculopathy, lumbar region Category: Medical Plan Mr Quinones came in in follow-up. The gabapentin was helping for awhile, but the affect seemed to wear off little bit. It is still helping give him more pain relief. No significant side effects that they can appreciate. He continues to work with PT. They are considering getting a recumbent bike to help get it is him some exercise and movement of his legs. We talked about going up on the gabapentin to 900 at night and 600 in the morning. The question of a spinal cord stimulator remains and at this point they are not quite interested in pursuing that but it might get to that point down the road. I told him to let me know when it be happy to refer. I gave him them an updated PT referral as well to continue on with their therapy exercises. Total amount of time spent in this visit was 20 minutes in discussion of symptoms, surgical results and subsequent plan of care Milton Harkins MD,PhD [facility] Orders: Orders PT Evaluation and Treatment Today M54.16 - Radiculopathy, lumbar region Coding Level of Care Code Est Pt Level 3 (65444) Diagnoses Lumbar radiculopathy M54.16
--- OUTSIDE RECORDS SUMMARY | 2024-11-11 13:18 | XMS_ITS | Clinical Summary ---
Author Organization [facility], Address [address] [place] [address] Phone Care Team Providers Care Grocery Cashier Name Role Phone Patel Madrigal Primary Care Provider [phone] Allergies Active Allergy Reactions Criticality Noted Date [...] patient's age to complete this topic Insurance [facility] Medicare Care Teams Grocery Cashier Relationship Specialty Start Date End Date Patel Madrigal PA [address] [place] [address] PCP - General Physician Real Estate Sales Manager 03/09/23
--- OUTSIDE RECORDS SUMMARY | 2024-11-11 13:19 | XMS_ITS | Clinical Summary ---
Author Organization [facility] Address [address] [facility] [address] [place] [phone] Phone Care Team Providers Care Analysis Lead Name Role Phone Raymundo Momin DO Primary Care Provider [phone] Rafael Banks MD, DPHIL Unavailable [phone] Allergies No known active allergies Active Problems [...] (2 - 2023-2 5 season) 2023 12/15/2020 INFLUENZA VACCINE (#1) 2024 12/11/2020 HEPATITIS A VACCINES Aged Out No long [...] topic Medical Devices Not on file Insurance [facility] [place] [place] [address] [facility] [place] [address] [facility] [place] [address] [facility] [place] [address] [facility] [place] [address] [facility] [place] [address] [facility] [place] [address] [facility] [place] [address] [facility] Care Teams Analysis Lead Relationship Specialty Start Date End Date Raymundo Momin DO PCP - General Internal Medicine 09/10/14 Rafael Banks MD, DPHIL [address] [place] [phone] [email or web address] Primary Oncologist Radiation Oncology 05/29/15 Additional Source Comments The information contained in this document represents components of the legal health record. It is not the complete legal health record.[facility]
== END 2024-11-11 13:41 | disposition home or self-care (01) ==
LOC: HO.HNS 10:26
PROVIDERS: PCP Physician Assistant; Visit Provider Physician Assistant
DX: M54.16 Radiculopathy, lumbar region (principal)
CPT/HCPCS: 99213

== ENCOUNTER → 2024-11-11 10:25 | Outpatient (BNVA) | payer MEDICARE, SELFPAY | PROVIDERS: PCP Physician Assistant; Visit Provider Physician Assistant | DX: M54.16 Radiculopathy, lumbar region (principal) | CPT/HCPCS: 99212 ==